=== PATIENT | male | born 1950 | race Caucasian/White ===

== ENCOUNTER 2018-06-21 11:37 | Emergency (ER) | payer BC ==
[2018-06-21] MEDS ORDERED: Lidocaine 1% w/Epinephrine 1:100K 20 ML VIAL ONE (12:09)
[2018-06-21] MEDS ORDERED: Adacel (T-DAP) 0.5 ML SYRINGE ONE (12:15)
[2018-06-21] MEDS ORDERED: Bacitracin Zinc 1 Packet ONE (12:28)
== END 2018-06-21 12:45 | disposition home or self-care (01) ==
LOC: ERS 11:37
DX: T21.12XA Burn of first degree of abdominal wall, initial encounter (principal); T22.011A Burn of unspecified degree of right forearm, initial encounter; F17.220 Nicotine dependence, chewing tobacco, uncomplicated
CPT/HCPCS: 12004; 90471; 90715; J2001

== ENCOUNTER 2019-09-20 12:40 | Outpatient (CLI) | payer MEDICARE ==
[2019-09-20 15:09] LABS: Bacteria/HPF None Seen HPF (None Seen); Bilirubin Negative (Negative); Blood, Urine Negative (Negative); Clarity Clear (Clear); Glucose, Urine (Dipstick) Normal (Negative); Leukocyte Negative Leu/uL (Negative); Nitrite Negative (Negative); Protein, Urine (Dipstick) Negative (Neg-Trace); RBC/HPF 0-3 HPF (0-3); Squamous Epithelial None Seen HPF (0-3); Urobilinogen Normal mg/dL (Less than 2); WBC/HPF 0-3 HPF (0-3)
[2019-09-20 15:26] LABS: Anion Gap 13 mmol/L (10-20); BUN (Urea Nitrogen) 18 mg/dL (8.4-25.7); Calc. Creatinine Clearance 0 mL/min (70-130); Calcium 9.4 mg/dL (7.8-10.44); Carbon Dioxide 21 mmol/L (23-31); Chloride 106 mmol/L (98-107); Estimated GFR-MDRD 78; Glucose 96 mg/dL (80-115); Sodium 136 mmol/L (136-145)
[2019-09-20 17:00] LABS: Band 8 % (5-11); Eosinophils 3 % (0-10); Hemoglobin 15.4 g/dL (14.0-18.0); Lymphocytes 30 % (21-51); MDiff Complete? YES; Mean Corpuscular HGB CONC 34.3 g/dL (32.0-36.0); Mean Corpuscular Hemoglobin 31.1 pg (27.0-31.0); Mean Corpuscular Volume 90.8 fL (78.0-98.0); Mean Platelet Volume 7.8 fL (7.4-10.4); Monocytes 14 % (0-10); Neutrophil 40 % (42-75); Platelet Count 237 thou/uL (130-400); Platelet Morphology Comment Appears Adequate; RBC Distribution Width 11.7 % (11.5-14.5); RBC Morphology Normal; Reactive Lymphocytes 5 % (0-10); Red Blood Cell (RBC) Count 4.96 mill/uL (4.70-6.10); White Blood Cell (WBC) Count 4.6 thou/uL (4.8-10.8)
== END 2019-09-20 12:41 | disposition home or self-care (01) ==
LOC: LABBT 12:40
PROVIDERS: ATTEND Orthopaedic Surgery Hand Surgery
DX: Z01.818 Encounter for other preprocedural examination (principal); S62.502B Fracture of unspecified phalanx of left thumb, initial encounter for open fracture
CPT/HCPCS: 80048; 81001; 85025; 93005; 93010

== ENCOUNTER 2019-09-22 13:03 | Inpatient (IN) | payer MEDICARE ==
[2019-09-20 13:10] VITALS: BMI 32.3
[2019-09-22] MEDS ORDERED: Dexamethasone 20 MG/5 ML VIAL ONE (13:12)
[2019-09-22] MEDS ORDERED: PROPOFOL 200 MG/20 ML VIAL ONE (13:12)
[2019-09-22] MEDS ORDERED: diphenhydrAMINE 50 MG/ML VIAL ONE (13:12)
[2019-09-22] MEDS ORDERED: Succinylcholine Chloride 20 MG/ML 10 ml SYRINGE FS ONE (13:12)
[2019-09-22] MEDS ORDERED: Ondansetron PF 4 MG/2 ML Vial ONE (13:12)
[2019-09-22] MEDS ORDERED: Fentanyl 100 MCG/2 ML VIAL ONE ×3 (15:33→18:15)
[2019-09-22] MEDS ORDERED: Heparin 1,000 UNITS/ML VIAL ONE (15:37)
[2019-09-22] MEDS ORDERED: Bacitracin Zinc Ointment 30 gm TUBE ONE (16:27)
[2019-09-22] MEDS ORDERED: Sodium Chloride 0.9% 10 ML ONE (16:27)
[2019-09-22] MEDS ORDERED: Bupivacaine PF 0.5% 30 ML VIAL ONE (16:27)
[2019-09-22] MEDS ORDERED: Sodium Chloride 0.9% 20 ML ONE (16:27)
--- NOTE | 2019-09-22 17:44 | RAD ---
EXAM: 3 views of the left hand COMPARISON: 09/16/2019 HISTORY: Metacarpal fracture of the thumb FINDINGS: Limited intraoperative fluoroscopic views of the left thumb were submitted for interpretati on. There is opaque structures are seen surrounding the fracture of the thumb metacarpal which may represent methylmethacrylate beads. IMPRESSION: Postsurgical changes surrounding the thumb metacarpal fracture
[2019-09-22] MEDS ORDERED: Milk Of Magnesia 30 ML UDCUP PO PRN (18:01)
[2019-09-22] MEDS ORDERED: Acetaminophen 325 MG TAB PO PRN (18:01)
[2019-09-22] MEDS ORDERED: Fentanyl 100 MCG/2 ML VIAL SLOW IVP PRN (18:01)
[2019-09-22] MEDS ORDERED: Bisacodyl 10 MG SUPP PR PRN (18:01)
[2019-09-22] MEDS ORDERED: Morphine 4 MG/ML VIAL SLOW IVP PRN (18:01)
[2019-09-22] MEDS ORDERED: Ondansetron PF 4 MG/2 ML Vial IV PRN (18:01)
[2019-09-22] MEDS ORDERED: HYDROcodone/Acetaminophen 10/325 mg Tablet PO PRN (18:01)
[2019-09-22] MEDS ORDERED: Meperidine HCl/PF 25 MG/ML VIAL IM PRN (18:09)
[2019-09-22] MEDS ORDERED: Communication Order-Pharmacy FS SCH (18:15)
[2019-09-22] MEDS: Aspirin 81 mg Enteric Coated Tablet PO SCH (20:11)
[2019-09-22] MEDS ORDERED: Vancomycin 1.5 GM in Premix Bag 1 BAG IVPB SCH (21:00)
--- NOTE | 2019-09-22 21:00 | OP ---
DATE OF PROCEDURE: 09/22/2019 POSTOPERATIVE DIAGNOSES: 1. Abscess, deep thenar. 2. 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 FINDINGS: 2 x 2 cm plastic debris type foreign body mass found half way into the thenar musculature and half way into his fracture with surrounding soft tissue fracture and bony abscess with gross bone infection and fracture involvement. Multiple small particles that were black and plastic as well seen all along the bone some imprint requiring debridement. PROCEDURE PERFORMED: 1. Debridement of material associated with open fracture, left thumb metacarpal fracture. 2. Drainage of deep abscess thenar space. 3. Bone cortex excision, metacarpal thumb left for osteomyelitis. 4. C-arm supervision. 5. Application of wound VAC. 6. Application, antibiotic beads. SPECIMEN: 1. Abscess culture and Gram stain. 2. Bone cortex excised culture and Gram stain. 3. Bone cortex excised for pathology to rule out osteomyelitis, acute versus chronic versus subacute. BLOOD LOSS: 25 mL. TOURNIQUET TIME: 17 minutes. INDICATIONS FOR PROCEDURE: The patient had had an open fracture with 3 cm wound on presentation one day prior in clinic with pain and swelling, and felt as if he had "soft and deep inside" and could not verify he had fracture debridement after at least a grade 2 fracture. He had marked comminution and at best the fracture would need to be stabilized and debrided. At the least debrided, at the best stabilized fix it was clean, it proved not to be. ANESTHESIA: General LMA technique augmented by 20 mL of 0.5% Marcaine, 10 given before procedure and 10 at the end. COMPLICATIONS: None. SPECIMENS: As described above. DESCRIPTION OF PROCEDURE: After successful general LMA technique, the limb was prepped and draped. We then gave the first 10 mL of 0.5% Marcaine block proximal to the wound and then exsanguinated the limb, inflated tourniquet to 250 mmHg pressure. The incision was carried through skin and subcutaneous tissue extended 1 cm distal and one proximal and immediately upon dissecting the deep dermis from the soft tissue envelope. There was gross purulence was escaping. We looked palmarly and there at the junction of the thenar muscle of the fracture, was a large black plastic foreign body with small black plastic particles loose in the wound and staining the fracture site itself. Could there was part of the traumatic event that led to this and now he had gross mucopurulent escaping from the thenar muscle and gross mucopurulence within the fracture site. This was indicative of deep infection and possible osteomyelitis. We then began debridement very carefully using the following techniques: A. Excision technique. B. Depth was included in the bone fractured deep thenar muscles and superficial muscle layer. C. Instruments used were as follow: Tenotomy scissors: Adson: Curette of all sides: [place]: A 4 L Pulsavac with antibiotics inside, [place] blade, Metzenbaum scissors, and gross infection was found of the tissue, muscle, bone and fracture. Once we finished the debridement, it was decided they should not have internal fixation, there was some bone loss as seen on C-arm, because it was so comminuted. Then, we decided to match the space and abscess after we were sure it was finished (which we were today based on gross findings). We then mixed tobramycin with antibiotic beads, made 15 very small beads approximately 3 mm total in diameter and placed them first deep in the thenar wound, next in the fracture site itself where we lost some bone, and then superficial to the bone subcutaneously and superficial. We then placed a VAC dressing on top of this with excellent suction and the patient had a splint applied to the entire milieu to protect the fracture from becoming more shortened. He left the operating room without evidence of anesthetic, operative complication. Job ID: [id number]
[2019-09-22] MEDS ORDERED: Vancomycin 1.5 GRAM/300 ML BAG 1.5 GM in Premix Bag 1 BAG IVPB SCH (21:15)
[2019-09-22] MEDS ORDERED: TETANUS AND DIPHTHERIA TOX/PF 0.5 ML DISP.SYRIN IM SCH (22:00)
[2019-09-23] MEDS: HYDROcodone/Acetaminophen 5/325 mg Tablet PO PRN ×2 (06:05→19:17)
[2019-09-23 06:25] LABS: #Lymphocytes 1.6 thou/uL (1.20-3.40); #Monocytes 0.6 thou/uL (0.11-0.59); #Neutrophils 5.6 thou/uL (1.40-6.50); %Eosinophils 0.1 % (0.0-10.0); %Lymphocytes 20.1 % (21.0-51.0); %Monocytes 7.3 % (0.0-10.0); %Neutrophils 72.5 % (42.0-75.0); Hemoglobin 14.8 g/dL (14.0-18.0); Mean Corpuscular HGB CONC 32.8 g/dL (32.0-36.0); Mean Corpuscular Hemoglobin 29.9 pg (27.0-31.0); Mean Corpuscular Volume 91.3 fL (78.0-98.0); Mean Platelet Volume 7.2 fL (7.4-10.4); Platelet Count 243 thou/uL (130-400); RBC Distribution Width 11.4 % (11.5-14.5); Red Blood Cell (RBC) Count 4.93 mill/uL (4.70-6.10); White Blood Cell (WBC) Count 7.7 thou/uL (4.8-10.8)
[2019-09-23] MEDS: Vancomycin 1.5 GRAM/300 ML BAG 1.5 GM in Premix Bag 1 BAG IVPB SCH ×2 (08:26→20:01)
[2019-09-23] MEDS: Aspirin 81 mg Enteric Coated Tablet PO SCH ×2 (08:26→19:16)
--- NOTE | 2019-09-23 18:33 | CON ---
DATE OF CONSULTATION: 09/23/2019 REASON FOR CONSULTATION: Left thumb infection. HISTORY OF PRESENT ILLNESS: A 69-year-old with history of osteoarthritis, but nothing much else, who sustained a laceration to the left hand at the thenar site from a rotating saw malfunction. He had some bleeding at that time and fainted for a brief period of time, recovered his mental state. They proceeded to clean the wound and eventually had to be evaluated by Dr. Bruno for likely infection. He took him to the OR yesterday and did a debridement. There was evidence of fracture of the left thumb metacarpal. There was an abscess in the thenar space and evidence of osteomyelitis of the metacarpal thumb. Specimens were submitted for culture. Currently, the patient is in the bed with his family member. He is very pleasant. No headaches, visual symptoms, sore throat, odynophagia, or dysphagia. No cough or sputum production or chest pain. No abdominal pain. No diarrhea. No genitourinary symptoms. No other joint symptoms outside the area of involvement. MEDICAL HISTORY: 1. Osteoarthritis. 2. Bilateral hip replacements. 3. Bipolar disorder. SOCIAL HISTORY: Current smoker. Lives in town. No alcoholic beverage use or drug use. ALLERGIES: SIMVASTATIN, NOT TRUE ALLERGY, BUT MYOSITIS. FAMILY HISTORY: Noncontributory. CURRENT MEDICATIONS: 1. [place]. 2. Ecotrin. 3. Dulcolax. 4. Sublimaze. 5. Demerol. 6. Zofran. 7. Vancomycin. PHYSICAL EXAMINATION: VITAL SIGNS: T-max 98.8, blood pressure 120/74, pulse 66, respirations 16 to 18, O2 saturation 95. SKIN: We have the dressing in the left hand. I did not remove the dressing. He has a negative pressure dressing anyway, covering the wound itself. Peripheral IV access. No Way catheter. No lymphadenopathy. HEENT: Not remarkable. NECK: Supple. No jugular vein distention. LUNGS: Symmetric with clear breath sounds. Clear to auscultation and percussion. HEART: Normal. ABDOMEN: Soft, not distended or tender. No ascites. No bladder distention. EXTREMITIES: Moves extremities equally with limitations imposed by inflammatory process in the left hand. NEUROLOGIC: Cognitive function appears perfectly fine. LABORATORY DATA: His admit labs: White cell count 7.7, hemoglobin 14.8, platelets 243 with 72% neutrophils, and 20% lymphocytes. The last chemistry analysis from 09/19 with a sodium 138 and creatinine 0.96. Liver profile was normal and the urinalysis was normal as well. IMAGING STUDIES: There is a hand x-ray from admission, which showed the fracture of the left 1st metacarpal with foreign bodies. The cultures are pending. Gram stain did not show anything, but looks like we have routine cultures only. ASSESSMENT: Injury to the left hand metacarpal and thenar space, status post surgical debridement. There is evidence of osteomyelitis and abscess. Samples were submitted for routine cultures. We will add mycobacterial and fungal cultures to the specimen and he is currently receiving vancomycin. We will add Rocephin and monitor culture results. Depending on culture results, then we will define the discharge regimen, if oral or intravenous administration. If nothing grows out of the samples, then we will have to use a broad-spectrum coverage and then I raised with the patient the possibility of a mycobacterial or fungal infection in case the cultures are negative. Job ID: [id number]
[2019-09-23] MEDS: cefTRIAXone\\ROCEPHIN 2 GM in Sodium Chloride 0.9% 100 ML IVPB SCH (19:17)
[2019-09-23 19:30] LABS: Hep C IgG Ab Non-Reactive (NonReactive); Hep C Index 0.05 S/CO (0-0.79)
[2019-09-24 08:16] LABS: Vancomycin, Trough 10.7 ug/mL
[2019-09-24] MEDS: Vancomycin 1.5 GRAM/300 ML BAG 1.5 GM in Premix Bag 1 BAG IVPB SCH (10:05)
[2019-09-24] MEDS: Aspirin 81 mg Enteric Coated Tablet PO SCH ×2 (10:11→20:07)
[2019-09-24] MEDS: HYDROcodone/Acetaminophen 5/325 mg Tablet PO PRN (10:11)
[2019-09-24] MEDS: cefTRIAXone\\ROCEPHIN 2 GM in Sodium Chloride 0.9% 100 ML IVPB SCH (20:07)
[2019-09-24] MEDS: Vancomycin HCl 1.75 GM in Sodium Chloride 0.9% 500 ML IVPB SCH (20:59)
[2019-09-25 05:16] LABS: #Basophils 0.1 thou/uL (0.0-0.2); #Eosinphils 0.2 thou/uL (0.0-0.7); #Lymphocytes 4.5 thou/uL (1.20-3.40); #Monocytes 0.7 thou/uL (0.11-0.59); %Eosinophils 2.3 % (0.0-10.0); %Lymphocytes 46.9 % (21.0-51.0); %Monocytes 7.4 % (0.0-10.0); %Neutrophils 42.4 % (42.0-75.0); Hemoglobin 14.8 g/dL (14.0-18.0); Mean Corpuscular HGB CONC 33.3 g/dL (32.0-36.0); Mean Corpuscular Hemoglobin 30.5 pg (27.0-31.0); Mean Corpuscular Volume 91.4 fL (78.0-98.0); Mean Platelet Volume 7.2 fL (7.4-10.4); Platelet Count 269 thou/uL (130-400); RBC Distribution Width 11.5 % (11.5-14.5); Red Blood Cell (RBC) Count 4.85 mill/uL (4.70-6.10); White Blood Cell (WBC) Count 9.5 thou/uL (4.8-10.8)
[2019-09-25] MEDS: Aspirin 81 mg Enteric Coated Tablet PO SCH ×2 (07:20→19:54)
[2019-09-25] MEDS: Vancomycin HCl 1.75 GM in Sodium Chloride 0.9% 500 ML IVPB SCH ×2 (08:21→20:48)
[2019-09-25] MEDS ORDERED: PROPOFOL 200 MG/20 ML VIAL ONE (10:23)
[2019-09-25] MEDS ORDERED: Ketorolac Tromethamine 30 MG/ML VIAL ONE (10:23)
[2019-09-25] MEDS ORDERED: Lidocaine 1% PF 5 ML VIAL ONE (10:23)
[2019-09-25] MEDS ORDERED: Bacitracin Zinc Ointment 30 gm TUBE ONE (14:44)
[2019-09-25] MEDS ORDERED: Sodium Chloride 0.9% 50 ML ONE (14:44)
[2019-09-25] MEDS ORDERED: Bupivacaine PF 0.5% 30 ML VIAL ONE (14:44)
[2019-09-25] MEDS ORDERED: Fentanyl 100 MCG/2 ML VIAL ONE ×2 (14:48→16:00)
[2019-09-25] MEDS ORDERED: Tobramycin Sulfate 1.2 GM VIAL ONE (14:49)
[2019-09-25] MEDS ORDERED: Propofol 1,000 MG/100 ML VIAL IV ONE (15:34)
[2019-09-25] MEDS ORDERED: PROPOFOL 20 ML ONE (15:35)
[2019-09-25] MEDS ORDERED: Promethazine HCl 25 MG/ML VIAL SLOW IVP PRN (17:25)
[2019-09-25] MEDS ORDERED: Ondansetron HCl/PF 4 MG/2 ML Vial IVP PRN (17:25)
[2019-09-25] MEDS ORDERED: Promethazine HCl 25 MG/ML VIAL IM PRN (17:25)
--- NOTE | 2019-09-25 17:43 | RAD ---
Radiograph left hand 4 views: DATE: 09/25/2019 HISTORY: 69-year-old male with fracture of first metacarpal COMPARISON: 09/16/2019 FINDINGS: Small [id number] fluoroscopic spot images obtained with C-arm in the OR. External metallic fixatio n device with pins at head and base of first metacarpal. Comminuted fracture of first metacarpal involving base through distal shaft. Methylmethacrylate beads around the fracture on some but not all of the images. IMPRESSION: Ongoing external fixation of the comminuted, displaced, traumatic fracture of left first metacarpal.
[2019-09-25] MEDS ORDERED: hydrALAZINE 20 MG/ML VIAL ONE (17:51)
[2019-09-25] MEDS ORDERED: hydrALAZINE 20 MG/ML VIAL SLOW IVP PRN (18:36)
[2019-09-25] MEDS: cefTRIAXone\\ROCEPHIN 2 GM in Sodium Chloride 0.9% 100 ML IVPB SCH (19:54)
[2019-09-25] MEDS: traMADol HCl 50 MG TAB PO PRN (22:17)
--- NOTE | 2019-09-26 07:16 | OP ---
DATE OF PROCEDURE: 09/25/2019 PREOPERATIVE DIAGNOSIS: Left thumb osteomyelitis for open 5 cm wound. FINDINGS: 1. No gross osteomyelitis. 2. Fracture still in the multiple portions with bone defect and comminuted. 3. No deep abscess or necrotic tissue, but a few particles seen (two small particles). PROCEDURES PERFORMED: 1. Debridement of wound deep, down to including the fracture. 2. Debridement of bone and material associated with open fracture. 3. Partial closure of wound (3 cm out of 6 cm). 4. Open reduction and external fixation of thumb metacarpal fracture. 5. Antibiotic bead exchange. 6. Application of short-arm splint, static. ESTIMATED BLOOD LOSS: 20 mL. SPECIMEN: None. TOURNIQUET TIME: 37 minutes. Again, no abscess, but minimal particles as the findings. INDICATION: The patient returned for staged wound management after a florid and mucopurulent deep thenar space submuscular abscess with osteomyelitis at the fracture site with gross contamination to include plastic from a grind injury three days prior to evaluation. He was treated with VAC dressing, had no fever or chills, but cultures are negative at this time. He has been evaluated by Infectious Disease to determine whether or not he will need antibiotics IV or oral. He returns for staged wound management. DESCRIPTION OF PROCEDURE: After successful general endotracheal anesthesia, limb was prepped and draped. He was given 20 mL of 0.5% Marcaine in a block proximal and around the incision. The limb was exsanguinated and tourniquet was inflated to 250 mmHg pressure. We extended the incision 5 mm distal and proximally, exposed the fracture completely. We used the following techniques to debride the fracture and wound: 1. Excision technique. 2. Instrumentation included tenotomy scissors, Adson's, curette, [place], Pulsavac with 5 L normal saline pulse pressure, dental tool, and Metzenbaum scissors. 3. We went deep to the bone (thenar and palmar, dorsal in a 365 degree range protecting the neurovascular bundles and tendons and inside the fracture as well with the same instrumentation). 4. There was no gross purulence found. We found two small black particles, which could be consistent with remnant; however, there was no more imbedded in the bone. This is especially true after irrigation. Now, we finished debridement as described above of the fracture/bone and the wound, we then prepared 10 antibiotic beads each approximately 3 mm x 3 mm for placement deep in the palmar wound where the abscess was greatest and around the fracture. Once we had prepared the beads on a #1 Ethib[place], we allowed them to harden and then, we used direct visualization, retracting all soft tissue to visualize the bone and protected the drill site with a drill protector/drill sleeve and placed proximal to the fracture 2 and distal to the fracture 2, a 1.25 wires, and then held them together with a mini Synthes external fixator bar until we had achieved anatomic position using open reduction with external fixation. We tightened all bars and attachments until we had nearly anatomic position in frontal sagittal plane. We then placed the antibiotic beads with 5 deep to the fracture, 2 adjacent palmar, and 2 adjacent dorsal. We then cut the wires and tightened them appropriately. Placed one [place] balls on each side of the fracture on the wires to protect the structures on the patient from inadvertent puncture, and then obtained hemostasis. We could not get VAC suction, so we closed the external fixator holes made in the skin with interrupted 4-0 nylon, repaired all but the initial 3 cm wound with a 4-0 nylon interrupted simple pattern. We packed the wound with iodoform gauze to the level of the bone and the beads, we placed iodoform gauze around external fixator incisions and then 4x4s. We had slits cut into them to cover the pin sites. We covered the wound with a bulky dressing to include 4x4s, Kerlix, and then placed the patient in a static thumb spica splint. He left the operating room without evidence of anesthetic or operative complication. Job ID: [id number]
[2019-09-26 08:44] LABS: Vancomycin, Trough 15.4 ug/mL
[2019-09-26] MEDS: Vancomycin HCl 1.75 GM in Sodium Chloride 0.9% 500 ML IVPB SCH (08:49)
[2019-09-26] MEDS: traMADol HCl 50 MG TAB PO PRN (08:51)
[2019-09-26] MEDS: Aspirin 81 mg Enteric Coated Tablet PO SCH (08:51)
[2019-09-26 11:21] VITALS: TEMP 98.1
[2019-09-26] MEDS: HYDROcodone/Acetaminophen 5/325 mg Tablet PO PRN (13:35)
[2019-09-26 15:29] VITALS: BP 148/84
--- NOTE | 2019-09-26 15:58 | SPC ---
Sonographic guided right upper extremity PICC placement HISTORY: Left Hand infection. FINDINGS: After explaining the procedure and answering all questions, the right upper extremity was p repped and draped in usual sterile fashion. Sterile technique, buffered local anesthesia, sonographic guidance, and a 22-gauge needle were used to carefully access the right basilic vein. Sta ndard technique was used to place the tip of a 5 [place] single lumen PICC so that the tip lies at the level of the superior vena cava. Catheter was flushed and secured externally. Patient tolerated t he procedure well and was returned in unchanged condition. IMPRESSION : Right upper extremity PICC is ready for use.
[2019-09-26] MEDS: cefTRIAXone\\ROCEPHIN 2 GM in Sodium Chloride 0.9% 100 ML IVPB SCH (16:11)
--- NOTE | 2019-09-26 16:46 | PRG ---
DATE OF SERVICE: 09/26/2019 SUBJECTIVE: Mr. Perea is again ready to go home. He is feeling okay. His hand is dressed. Dr. Bruno did a revision of the wound site and debridement of the wound deep down including the fracture, debridement of the bone, antibiotic bead exchange, and a fixation of the fracture. Pathology of the surgical specimen demonstrated osteomyelitis. OBJECTIVE: LUNGS: Clear. HEART: S1, S2. Regular rate. ABDOMEN: Soft, not distended or tender. VITAL SIGNS: Normal. LABORATORY DATA: White cell count is 9.5, hemoglobin 14.8, platelets 269. Hepatitis C nonreactive. All the cultures negative thus far. ASSESSMENT AND DISCUSSION: Injury, left hand, metacarpal and thenar space, status post surgical debridement, evidence of osteomyelitis and abscess. The patient to be discharged on Rocephin and vancomycin or Rocephin and daptomycin. Treat for at least 4 weeks. Job ID: [id number]
== END 2019-09-26 17:44 | disposition home or self-care (01) | DRG 516 ==
LOC: SDC 13:03 → SURG B 18:10
PROVIDERS: ADMIT Orthopaedic Surgery Hand Surgery; ATTEND Orthopaedic Surgery Hand Surgery
PROC: 0PBS0ZZ Excision of Left Thumb Phalanx, Open Approach (ICD-10-PCS; 2019-09-22)
PROC: 3E0V329 Introduction of Other Anti-infective into Bones, Percutaneous Approach (ICD-10-PCS; 2019-09-22)
PROC: 0PS Upper Bones, Reposition (ICD-10-PCS; principal; 2019-09-25)
PROC: 02HV33Z Insertion of Infusion Device into Superior Vena Cava, Percutaneous Approach (ICD-10-PCS; 2019-09-25)
PROC: B548ZZA Ultrasonography of Superior Vena Cava, Guidance (ICD-10-PCS; 2019-09-25)
PROC: 3E0V329 Introduction of Other Anti-infective into Bones, Percutaneous Approach (ICD-10-PCS; 2019-09-25)
DX: S62.232B Other displaced fracture of base of first metacarpal bone, left hand, initial encounter for open fracture (principal); M86.142 Other acute osteomyelitis, left hand; M60.04 Infective myositis, hand and fingers; W31.2XXA Contact with powered woodworking and forming machines, initial encounter; E78.5 Hyperlipidemia, unspecified; F31.9 Bipolar disorder, unspecified; K21.9 Gastro-esophageal reflux disease without esophagitis; J30.9 Allergic rhinitis, unspecified; Z96.641 Presence of right artificial hip joint; G62.9 Polyneuropathy, unspecified; F17.220 Nicotine dependence, chewing tobacco, uncomplicated; Z96.643 Presence of artificial hip joint, bilateral; Z79.899 Other long term (current) drug therapy; Z79.82 Long term (current) use of aspirin
CPT/HCPCS: 36415; 36569; 76000; 80048; 80202; 81001; 85025; 85652; 86803; 87070; 87205; 88307; 88311; 93005; 99213; C1713; C1751; G0463; J0360; J0690; J0696; J1100; J1200; J1644; J1885; J2001; J2270; J2405; J2704; J3010; J3260; J3370; J3490; J7050; S0020

== ENCOUNTER 2019-10-27 06:47 | Day surgery (SDC) | payer MEDICARE ==
[2019-10-26 09:05] VITALS: BMI 32.5
[2019-10-27 08:10] LABS: #Eosinphils 0.3 thou/uL (0.0-0.7); #Lymphocytes 2.2 thou/uL (1.20-3.40); #Neutrophils 3.4 thou/uL (1.40-6.50); %Basophils 0.6 % (0.0-1.0); %Eosinophils 3.9 % (0.0-10.0); %Lymphocytes 31.6 % (21.0-51.0); %Monocytes 14.4 % (0.0-10.0); %Neutrophils 49.5 % (42.0-75.0); Hemoglobin 14.7 g/dL (14.0-18.0); Mean Corpuscular HGB CONC 33.6 g/dL (32.0-36.0); Mean Corpuscular Hemoglobin 30.7 pg (27.0-31.0); Mean Corpuscular Volume 91.4 fL (78.0-98.0); Mean Platelet Volume 7.1 fL (7.4-10.4); Platelet Count 220 thou/uL (130-400); RBC Distribution Width 11.7 % (11.5-14.5); Red Blood Cell (RBC) Count 4.79 mill/uL (4.70-6.10); White Blood Cell (WBC) Count 6.8 thou/uL (4.8-10.8)
[2019-10-27] MEDS ORDERED: Midazolam HCl 2 mg/2 ml Vial ONE (08:22)
[2019-10-27] MEDS ORDERED: Fentanyl 100 MCG/2 ML VIAL ONE ×2 (08:22→11:54)
[2019-10-27] MEDS ORDERED: Lidocaine 2% Jelly 5 ML TUBE ONE (08:22)
[2019-10-27] MEDS ORDERED: Bupivacaine PF 0.5% 30 ML VIAL ONE ×2 (08:32→09:17)
[2019-10-27] MEDS ORDERED: Bacitracin Zinc Ointment 30 gm TUBE ONE (08:32)
[2019-10-27] MEDS ORDERED: Gentamicin 80 MG/2 ML VIAL ONE (08:40)
[2019-10-27] MEDS ORDERED: Dexamethasone 20 MG/5 ML VIAL ONE (11:39)
[2019-10-27] MEDS ORDERED: Glycopyrrolate 0.2 MG/ML 5 ML SYRINGE ONE (11:39)
[2019-10-27] MEDS ORDERED: Rocuronium Bromide 10 MG/ML (10ML VIAL) ONE (11:39)
[2019-10-27] MEDS ORDERED: Lidocaine 1% PF 5 ML VIAL ONE (11:39)
[2019-10-27] MEDS ORDERED: Ondansetron PF 4 MG/2 ML Vial ONE (11:39)
[2019-10-27] MEDS ORDERED: PROPOFOL 200 MG/20 ML VIAL ONE (11:39)
[2019-10-27] MEDS ORDERED: Ketorolac Tromethamine 30 MG/ML VIAL ONE (11:54)
--- NOTE | 2019-10-27 14:25 | RAD ---
XRAY FLUORO PER HOUR PORTABLE: HISTORY: ORIF left thumb. COMPARISON: Radiograph of the hand 09/25/2019. FINDINGS: Multiple percutaneous pins are placed in the thumb. IMPRESSION: Fluoroscopy for surgical purposes. POS: HOME
--- NOTE | 2019-10-28 15:35 | OP ---
DATE OF PROCEDURE: 10/27/2019 PREOPERATIVE DIAGNOSES: 1. Left thumb prior grade 3 osteomyelitis, now healed after two previous debridements, external fixation and 5 weeks of IV antibiotics. 2. Small external fixator indwelling, left thumb metacarpal. POSTOPERATIVE DIAGNOSIS AND FINDINGS: No evidence of infection grossly to include skin and subcutaneous tissue, bone and deep muscle with a previous deep foreign body (half of a router wheel), had been lodged and caused the infection and the fracture. PROCEDURES PERFORMED: 1. C-arm supervision. 2. Removal under anesthesia, external fixator, left thumb metacarpal. 3. Debridement of wound. 4. Open fracture debridement, of material associated with open fracture, left thumb metacarpal. 5. Open reduction and internal fixation of left thumb metacarpal fracture with K-wires x3, 0.45. 6. Bone grafting with minor technique with use of cancellous chips approximately 5 mL out of 15. 7. Removal of antibiotic beads. TOURNIQUET TIME: 18 minutes. ESTIMATED BLOOD LOSS: 50 mL. INJECTABLE: A total of 20 mL of 0.5% Marcaine, 10 given in the area of the field before and 10 given after procedure was complete. INDICATIONS FOR PROCEDURE: The patient returns for staged wound management after two prior debridements for an abscess with open fracture, grade 3 wound, treated with multiple debridements, 2 antibiotic beads placed, and with antibiotic beads in place now. DESCRIPTION OF PROCEDURE: After successful general endotracheal anesthesia, the limb was prepped and draped. The patient had the time-out done, appropriately identified the limb and procedures. Then, we exsanguinated the limb and covered the external fixator with separate [place], so it would not contaminate the field. We then carried the incision through skin and subcutaneous tissue down to the extensor tendon. We released the extensor tendon from retinaculum distally and we exposed the bone and fracture. At this point, we began to dissect gently with a crile, hemostats, and tenotomy scissors. The antibiotic beads were removed. It created a cavity both in the bone as well as the thenar muscle. We then debrided the denuded muscle, curetted the fracture site and bone, and then saved a sample of each to go down to the lab for high-power field investigation for white blood cell/neutrophils. Then, we had finished our debridement of all material associated with open fracture. Debridement was excisional. It was including the bone, soft tissue, muscle and the fracture itself. We then used a [place] blade, curette, freer, rongeur, Adson, and we used Pulsavac 5 L of normal saline with irrigation inside. Once we had finished this, we removed the external fixator under anesthesia, opened the pin sites by 2 mm on either side of the central small wire and then curetted these. We irrigated each wound with 10 mL of normal saline syringe with a 21-gauge needle. We finished the Pulsavac. By the time we finished the Pulsavac, we could see the fracture was not in excellent alignment, so with the fixator removed, we distracted it, corrected all angulation in both planes, placed 2 K-wires from distal to proximal and one from proximal to distal. Just as we finishing these and had seen excellent position, results came back with the tourniquet deflated that there was only 1 neutrophil per high-power field. This is well below the acceptable level of 5 per high-power field, so we proceeded with bone grafting. We soaked the cancellous bone graft chips in normal saline for 10 minutes, crushed them, and began packing the three areas of bone loss, one dorsal proximal, one palmar proximal, and one midshaft proximal third junction defect. The wires , the fracture moved as one with no gross motion of fracture site either. One of the two places was complex. From this point, we obtained hemostasis. We then had finished the bone graft, debridement was gone, the open fracture material was gone, and we removed the external fixator. We now prepared for closure of the wound. This was done with excellent hemostasis. We repaired retinaculum back to the extensor mechanism with an interrupted 2-0 Vicryl [id number] pattern. We then closed the skin with a running 4-0 Monocryl and then 4-0 nylon was used for epidermal closure in a simple pattern. Bulky dressing was applied along with an application of a short-arm splint despite fracture stability and the patient left the operating room without evidence of anesthetic or operative complication. Job ID: [id number]
== END 2019-10-27 13:18 | disposition home or self-care (01) ==
LOC: SDC 06:47
PROVIDERS: ATTEND Orthopaedic Surgery Hand Surgery
PROC: 0PSQ04Z Reposition Left Metacarpal with Internal Fixation Device, Open Approach (ICD-10-PCS; principal; 2019-10-27)
PROC: 0PR Upper Bones, Replacement (ICD-10-PCS; 2019-10-27)
DX: S62.232B Other displaced fracture of base of first metacarpal bone, left hand, initial encounter for open fracture (principal); E78.5 Hyperlipidemia, unspecified; K21.9 Gastro-esophageal reflux disease without esophagitis; G89.29 Other chronic pain; M54.9 Dorsalgia, unspecified; M19.90 Unspecified osteoarthritis, unspecified site; F17.220 Nicotine dependence, chewing tobacco, uncomplicated; F31.9 Bipolar disorder, unspecified; G62.9 Polyneuropathy, unspecified; E66.3 Overweight; Z68.32 Body mass index [BMI] 32.0-32.9, adult; Z79.82 Long term (current) use of aspirin; Z79.899 Other long term (current) drug therapy; Z88.8 Allergy status to other drugs, medicaments and biological substances; Z96.641 Presence of right artificial hip joint; W29.8XXA Contact with other powered hand tools and household machinery, initial encounter
CPT/HCPCS: 26665; 26989; 73120; 76000; 85025; 88305; 88331; J2250; J2405; J2704; J3010; J3370; J0690; J1100; J1580; J1885; J2001; S0020

== ENCOUNTER 2025-02-16 09:23 | Outpatient (CLI) | payer MEDICARE | END 2025-02-16 09:24 | disposition home or self-care (01) | LOC: BICRAD 09:23 | PROVIDERS: ATTEND Family Medicine | DX: M54.2 Cervicalgia (principal); M47.812 Spondylosis without myelopathy or radiculopathy, cervical region | CPT/HCPCS: 72050 ==